=== PATIENT | male | born 1945 | race Two or more races ===

== ENCOUNTER 2017-02-20 21:32 | Emergency (ER) | payer MEDICARE, OTHER ==
[~2017-02-20] VITALS: Ht 165.1 cm; Wt 71.7 kg
[2017-02-20] MEDS ORDERED: NORVASC2.5 MG ORAL (21:52)
[2017-02-20 22:01] VITALS: BP 157/91
[2017-02-20] MEDS ORDERED: IBUPROFEN600 MG ORAL (22:36)
--- NOTE | 2017-02-20 22:36 | Emergency Room Report ---
History of Present Illness General Chief Complaint: Multiple Trauma/Fall Source: Patient Present Illness [facility] This is a 71-year-old male who is right-hand dominant. He presents with chief complaint of left wrist pain. Around 3 PM this afternoon, he tripped and fell on outstretched hand. Complaining of pain over the distal ulnar area. Better after taking Advil. No nausea vomiting. No other injury. Did not pass out. Allergies: Coded Allergies: No Known Allergies (Unverified , 02/20/17) Patient History Past Medical History: see triage record, old chart reviewed Past Surgical History: other Pertinent Family History: none Social History: Denies: drug use Immunizations: other Reviewed Nursing Documentation: PMH: Agreed, PSxH: Agreed Nursing Documentation-PMH Past Medical History: No History, Except For Hx Cardiac Problems: Yes Hx Hypertension: Yes Review of Systems Eye: Denies: blurred vision, eye pain ENT: Denies: ear pain, nose congestion, throat swelling Respiratory: Denies: cough, shortness of breath Cardiovascular: Denies: chest pain, palpitations Gastrointestinal: Denies: abdominal pain, diarrhea, nausea, vomiting Musculoskeletal: Reports: joint pain, Denies: back pain Skin: Denies: rash Neurological: Denies: headache, numbness Endocrine: Denies: increased thirst, increased urine Hematologic/Lymphatic: Denies: easy bruising All Other Systems: negative except mentioned in HPI Physical Exam Vital Signs Date Time Temp Pulse Resp B/P Pulse Ox O2 Delivery O2 Flow Rate FiO2 02/20/17 21:47 98.1 76 16 157/91 98 Room Air vitals with hypertension Sp02 EP Interpretation: reviewed, normal General Appearance: well appearing, no apparent distress, alert Head: normocephalic, atraumatic Eyes: bilateral eye EOMI, bilateral eye PERRL ENT: hearing grossly normal, normal pharynx Neck: full range of motion, supple, no meningismus Respiratory: chest non-tender, lungs clear, normal breath sounds Cardiovascular #1: regular rate, rhythm, no murmur Gastrointestinal: normal bowel sounds, non tender, no mass, no organomegaly, no bruit, non-distended Musculoskeletal: back normal, gait/station normal, normal range of motion, other - Left wrist: There is tenderness and mild edema to the distal ulnar. There is deformity to the base of the thumb and distal radius. This is chronic from previous fracture. No pain. Radial pulse 2+. Sensation normal. Psychiatric: mood/affect normal Skin: warm/dry Procedures Splinting Splinting : Consent: Emergent Location: Left wrist Pre-Made Type: velcro Splint: volar Pre-Proc Neuro Vasc Exam: normal Post-Proc Neuro Vasc Exam: normal Patient Tolerated: Well Complications: None Medical Decision Making Diagnostic Impression: Primary Impression: Left wrist sprain Qualified Codes: S63.502A - Unspecified sprain of left wrist, initial encounter ER Course Patient presents with left wrist sprain/injury. No obvious fracture. No dislocation. We'll discharge home. He does not want any pain medication. Other X-Ray Diagnostic Results Other X-Ray Diagnostic Results : X-Ray ordered: Left wrist # of Views/Limited Vs Complete: 3 View Indication: Pain EP Interpretation: Yes Interpretation: no dislocation, no soft tissue swelling, no fractures, other - Degenerative changes Impression: No acute disease Interpreting ER Provider: Electronically signed by Mario Lopez MD Last Vital Signs Date Time Temp Pulse Resp B/P Pulse Ox O2 Delivery O2 Flow Rate FiO2 02/20/17 22:01 98.1 16 157/91 98 Room Air 02/20/17 21:47 76 Status: improved Disposition: HOME, SELF-CARE Condition: Stable Scripts Ibuprofen* (MOTRIN*) 600 Mg Tablet 600 MG ORAL Q8H Y for For Pain, #30 TAB 0 Refills Prov: MARIO LOPEZ M.D. 02/20/17 Referrals: NON PHYSICIAN (PCP) Additional Instructions: Followup with your DrShakira in 7 days. Ice pack to the area. Return if symptom worsen. If still hurting after a week, you may need another x-ray. MARIO LOPEZ M.D. Feb 20, 2017 22:36
[2017-02-20 22:45] VITALS: BP 155/79
--- NOTE | 2017-02-21 15:48 | Diagnostic Imaging Report ---
Clinical Indication:TRAUMA Technique: 3 views of the left wrist Comparison: None Findings: No definite acute fractures or dislocations. There are degenerative and proliferative changes and degenerative remodeling of the first and second carpometacarpal joints. Bones are osteoporotic. Impression: No acute bony trauma Degenerative changes, as described
== END 2017-02-20 22:45 | disposition home or self-care (01) ==
LOC: EMR 22:02
DX: S63.502A Unspecified sprain of left wrist, initial encounter (principal); W01.0XXA Fall on same level from slipping, tripping and stumbling without subsequent striking against object, initial encounter; Y92.89 Other specified places as the place of occurrence of the external cause; I10 Essential (primary) hypertension
CPT/HCPCS: 29260; 99283